=== PATIENT | female | born 2000 | race Hispanic/Latino ===

== ENCOUNTER 2023-05-27 12:42 | Emergency (ER) | payer MEDICAID, OTHER ==
[~2023-05-27] VITALS: Ht 157.5 cm; Wt 53.1 kg
[2023-05-27 12:44] VITALS: BP 128/74; PULSE 88; RESP 16
== END 2023-05-27 13:56 | disposition left against medical advice (07) ==
LOC: EDH 12:42
DX: M25.561 Pain in right knee (principal); Z53.21 Procedure and treatment not carried out due to patient leaving prior to being seen by health care provider
CPT/HCPCS: 73562; 99281